=== PATIENT | male | born 2005 ===

== ENCOUNTER 2025-03-17 12:44 | Emergency (ER) | payer OTHER, SELFPAY ==
--- NOTE | ~2025-03-17 | XR_ITS ---
Left foot Technique: AP, oblique, and lateral views were obtained. Clinical History: Injury Findings: No acute fracture or dislocation is seen. Osseous alignment is anatomic. Joint spaces are p reserved without erosive or degenerative change. Soft tissues are unremarkable. Impression: Unremarkable left foot radiographs. Reviewed, dictated and finalized at location . Impression: Unremarkable left foot radiographs.
--- NOTE | ~2025-03-17 | XR_ITS ---
Left ankle Technique: AP, oblique, and lateral views were obtained. Clinical History: Injury Findings: No acute fracture or dislocation is seen. Osseous alignment is anatomic. Ankle mortise and other visualized joint spaces are preserved. Soft tissues are otherwise unremarkable. Impression: Unremarkable left ankle. Reviewed, dictated and finalized at location . Impression: Unremarkable left ankle.
--- OUTSIDE RECORDS SUMMARY | 2025-03-17 12:50 | XMS_ITS | Clinical Summary ---
Author Organization [facility] Address [facility] [place] [address] Care Team Providers Care Hand Braille Transcriber Name Role Phone None, Provider MD Primary Care Provider Unavaila ble Allergies No known active allergies Medications ondansetron (ZOFRAN-ODT) 4 MG disintegrating tablet Take 1 tablet (4 mg total) by mouth every 8 (eight) hours as needed for Nausea. 20 tablet 2 Active Encounters Date Type Department Care Team Description 03/15/2025 Telephone [facility] [address] [facility] [address] [place] [address] Ang Fulton DO Appointment Request 03/13/2025 2:01 PM CDT - 03/13/2025 3:25 PM CDT Emergency [facility] Emergency Room [address] [place] [address] Jose Raul Palomino MD Foot Injury Discharge Disposition: Home or Self Care (Routine Discharge) 03/13/2025 Travel from Last 3 Months Social History Tobacco Use Types Packs/Day Years Used Date Smoking Tobacco: Former Cigarettes 0.3 0.5 Smokeless Tobacco: Never Tobacco Cessation:Counseling Given: Not Answered Alcohol Use Standard Drinks/Week Comments Never 0 (1 standard drink = 0.6 oz pur e alcohol) AUDIT-C Answer Date Recorded Q1: How often do you have a drink containing alc ohol? Never 06/10/2020 Average Number of Drinks Not on file Frequency of Binge Drinking Not on file 10/2019 Sex and Gender Information Value Date Recorded Sex Assigned at Not on file Legal Sex Male 4:07 PM CDT Gender Identity Not on file Sexual Orientation Not on file Last Filed Vital Signs Vital Sign Reading Time Taken Comments Blood Pressure 136/77 03/13/2025 3:19 PM CDT Pulse 60 03/13/2025 3:19 PM CDT Temperature 37.1 C (98.7 F) 03/13/2025 3:19 PM CDT Respiratory Rate 18 03/13/2025 3:19 PM CDT Oxygen Saturation 99% 03/13/2025 3:19 PM CDT Inhaled Oxygen Concentration - - Weight 72.6 kg (160 lb) 03/13/2025 2:05 PM CDT Height 185.4 cm (6' 1) 03/13/2025 2:05 PM CDT Body Mass Index 21.11 03/13/2025 2:05 PM CDT Plan of Treatment Health Maintenance Due Date Last Done Comments Annual Physical 2006 Meningococcal B Vaccine (1 of 2 - Standard) 2019 Hepatitis C 2021 COVID-19 Vaccine ( season) 2024 DTaP, Tdap and Td Vaccines (7 - Td or Tdap) 05/13/2024 05/13/2014, 02/11/2008, 06/20/2004, Additional history exists PHQ-2 (Physician [place]) 09/09/2024 Pneumococcal Vaccine: Pediatrics (0 to 5 Years) and At-Risk Patients (6 to 49 Years) Aged Out 2003, 2003, 2003 No longer eligible based on patient's age to complete this topic Hepatitis B Vaccines Completed 2003, 2003, 2003 HPV Vaccines Completed 06/27/2017, 06/12/2016 Meningococcal Vaccine Aged Out 06/27/2017, 016 No longer eligible based on patient's age to complete this topic RSV Immunizations Under 20 Months Aged Out No longer eligible based on patient's age to complete this topic Procedures Procedure Name Priority Date/Time Associated Diagnosis Comments XR FOOT LT 3V STAT 03/13/2025 2:29 PM CDT from Last 3 Months Results * XR FOOT LT 3V (03/13/2025 2:29 PM CDT) Anatomical Region Laterality Modality Foot Radiographic Henrietta ging 03/13/2025 2:31 PM CDT Impressions 03/13/2025 2:34 PM CDT IMPRESSION: 1. Subtle age-indeterminate lucency along the anterior aspect of the cuboid. Cannot exclude acute fracture. Could further evaluate with CT. Ordered By: JOSE RAUL PALOMINO Interpreted By: Justin Jack MD, 03/13/2025 2:31 PM Narrative 03/13/2025 2:34 PM [address]T [address] [place] [address] EXAMINATION: XR FOOT LT 3V EXAM TIME: 03/13/2025 2:29 PM CLINICAL HISTORY: Injury. Pain. Remote history of fracture. COMPARISON: None TECHNIQUE: Left foot, 3 views FINDINGS: Subtle age-indeterminate lucency along the anterior aspect of the cuboid. No other acute fractures seen elsewhere in the left foot. Probable accessory ossicle projecting inferior to the calcaneocuboid articulation on the lateral view. Procedure Note Justin Jack MD - 03/13/2025 [facility] [address] [facility] [place] [address] EXAMINATION: XR FOOT LT 3V EXAM TIME: 03/13/2025 2:29 PM CLINICAL HISTORY: Injury. Pain. Remote history of fracture. COMPARISON: None TECHNIQUE: Left foot, 3 views FINDINGS: Subtle age-indeterminate lucency along the anterior aspect of the cuboid.No other acute fractures seen elsewhere in the left foot. Probableaccessory ossicle projecting inferior to the calcaneocuboid articulationon the lateral view. IMPRESSION: 1. Subtle age-indeterminate lucency along the anterior aspect of thecuboid. Cannot exclude acute fracture. Could further evaluate with CT. Ordered By: JOSE RAUL PALOMINO Interpreted By: Justin Jack MD, 03/13/2025 2:31 PM us Jose Raul Palomino MD GENERAL IMAGING Final Result from Last 3 Months Insurance MEDICAID MEDICAL REIMBURSEMENTS OF [facility] Care Teams Hand Braille Transcriber Relationship Specialty Start Date End Date None, Provider, PCP - General UNKNOWN PHYSICIAN SPECIALTY 03/13/25
--- OUTSIDE RECORDS SUMMARY | 2025-03-17 12:50 | XMS_ITS | Clinical Summary ---
Author Organization [facility] Address [address] [place] [address] Care Team Providers Care Line Painting Machine Operator Name Role Phone Shayla Trinh MD Primary Care Provider [phone] Source Comments [facility],non-owned Affiliates and Associated Physician Practices is amultiple site organization consisting of ambulatory clinics and hospital sitesin [place], [place], [place] and [place]. This disclosure is being madepursuant to the Care Everywhere program and may not contain all information available regarding this patient. Last updated [email or web address] [facility] Allergies No known active allergies Medications * Be aware that medications may not be up to date on this document. Alwaysverify current medications with the patient. ibuprofen (ADVIL) 200 MG tablet Take 200 mg by mouth every 6 hours as needed for Pain Active Active Problems Problem Noted Date Diagnosed Date Contusion of left knee 09/04/2016 Left ankle injury 09/04/2016 Closed fracture of proximal end of left fibula with routine healing 05/21/2016 Closed left ankle fracture 04/27/2016 Fracture of upper end of fibula 04/26/2016 Tic disorder 10/26/2013 Overview (06/09/2015): History of hand flapping especially when excited or nervous or bored. He also stares off at times when flapping and sticks his tongue out at the same time. Also occasional eye blinking Assessment & Plan (10/26/2013 12:26 PM 6TH GRADE TEACHER): No treatment is indicated at this time. The tics are not disturbing to Barry or family. He is able to suppress them when needed. Does not have any vocal tics. Attention span is overall good. Following teaching provided to parents and school: Tics 1. Tics are not usually predictable. They may increase with talking about them, or in response to other sounds or movements. They may get worse when your child is excited or having other emotions, or when overly tired. They will be less often when your child is absorbed in activities or when asleep. Your child may be able to keep them from coming briefly, or during school, but it is a big effort and the movements are more likely to increase when s/he gets home and can relax. 2. Try to ignore the movements and vocalizations, but discuss the condition openly in the classroom so there children can understand and be more accepting. 3. Tics are not controllable by will power and are caused by biologic factors; stress is not underlying cause. 4. Some symptoms that are occurring are due to another cause and need to be evaluated and treated separately. 5. The treatment goal is to reduce tics to being less frequent or less intrusive, not complete suppression 6. Tics are a chronic condition, although most improve by adolescence or in early adult years. Stress headaches 10/26/2013 Overview (10/26/2013): Headaches are occasional. Not signs/symptoms of migraines Improves with OTCs. No school/activities missed Assessment & Plan (10/26/2013 1:00 PM 6TH GRADE TEACHER): Instructed to continue to use OTC medications for pain. To contact us again if headache frequency increases or worsens. Immunizations Immunization Administration Dates Next Due DTaP VACCINE IM (6wk-6yrs) 02/11/2008,,2003,2003,04/19 HEP B VACCINE, PED/ADOL 2003,2003, HIB BOOSTER 2003,2003,2003 INFLUENZA VACCINE 05/19/2009,07/02/2008,06/30/20 07,07/30/2006 MMR 02/11/2008,03/03/2004 PNEUMOCOCCAL CONJ, PEDS 2003,2003, POLIO IPV 02/11/2008,2003,2003 ,2003 VARICELLA 02/11/2008,03/03/2004 Family History Medical History Relation Name Comments Asthma Brother 1 Ryan Asthma Brother 2 Gonzales Rashes/Skin Problems Brother 2 Gonzales Hypertension Father Diabetes Maternal Grandmother Hypertension Maternal Grandmother Migraine Maternal Grandmother Stroke Maternal Grandmother Migraine Mother Hypertension Paternal Grandmother Stroke Paternal Grandmother Relation Name Status Comments Brother 1 Ryan Alive Brother 2 Gonzales Alive Father Maternal Grandmother Mother Paternal Grandmother Social History Tobacco Use Types Packs/Day Years Used Date Smoking Tobacco: Never Alcohol Use Standard Drinks/Week Comments No 0 (1 standard drink = 0.6 oz pur e alcohol) Sex and Gender Information Value Date Recorded Sex Assigned at Not on file Legal Sex Male 5:31 AM 6TH GRADE TEACHER Gender Identity Not on file Sexual Orientation Not on file Last Filed Vital Signs Vital Sign Reading Time Taken Comments Blood Pressure 120/58 10/26/2013 10:16 AM 6TH GRADE TEACHER Pulse - - Temperature 37.1 C (98.7 F) 07/31/2011 1:41 PM 6TH GRADE TEACHER 0930 Ibuprofen Respiratory Rate - - Oxygen Saturation - - Inhaled Oxygen Concentration - - Weight 75.2 kg (165 lb 12.6 oz) 10/04/2016 1:14 PM 6TH GRADE TEACHER Height 167.1 cm (5' 5.79) 10/04/2016 1 :14 PM 6TH GRADE TEACHER Body Mass Index 26.93 10/04/2016 1:14 PM 6TH GRADE TEACHER Plan of Treatment Health Maintenance Due Date Last Done Comments DTAP/TDAP/TD VACCINES (6 - Tdap) 2014 02/11/2008, 06/20/2004, 2003, Additional history exists HIV SCREENING 2018 HPV VACCINE (1 - Male 3-dose series) 2018 MENINGOCOCCAL (Group B) VACCINE SHARED DECISION-MAKING (1 of 2 - Standard) 2019 HEPATITIS C SCREENING 02/07/2021 COVID-19 VACCINE ( - season) 2024 DEPRESSION SCREENING 09/09/2024 INFLUENZA VACCINE (#1) 2025 07/0207/02/2008, 06/30/2007, Additional history exists ZOSTER VACCINE (1 of 2) 2053 HIB VACCINE Aged Out 2003, 04/2003, 2003 No longer eligible based on patient's age to complete this topic PNEUMOCOCCAL VACCINE Aged Out 2003, 2003, 2003 No longer eligible based on patient's age to complete this topic HEPATITIS B VACCINE Completed 2003, 2003, 2003 MENINGOCOCCAL GROUPS A/C/Y/W VACCINE Aged Out No longer eligible based on patient's age to complete this topic Insurance [place] Care Teams Line Painting Machine Operator Relationship Specialty Start Date End Date Shayla Trinh MD [address] [place] [phone] PCP - General Family Medicine 08/21/13
[2025-03-17 12:56] VITALS: BP 124/68; PULSE 82; RESP 16; TEMP 36.6; O2SAT 100
--- NOTE | 2025-03-17 13:39 | ED_ITS ---
HPI - Extremity Injury (Lower) General Chief Complaint: Extremity Injury, Lower Stated Complaint: left foot injury Time Seen by Provider: 03/17/25 12:51 History of Present Illness HPI Narrative: 20-year-old male presents emergency department for left foot pain for 6 days. Patient states he works at [employer]. States 6 days ago he had a cart at [employer] fall on his left foot. He went to an outside hospital 2 days later and had x-rays performed which showed no broken bones. He is referred to orthopedist. States he attempted to contact the orthopedist but cannot make an appointment because the orthopedist reportedly does not see foot issues. The patient states he has been trying to set up work comp with his employer but is been taking while and was told by his employer to come to the ED if he continues to have issues. The patient states he developed bruising to the dorsum of his foot yesterday. He is reporting pain diffusely throughout the dorsum of his foot. He has been wearing a boot and crutches with minimal improvement. Has been taking ibuprofen [id number] for pain with improvement. Also admits to icing and elevating with improvement. Related Data Allergies Allergy/AdvReac Type Severity Reaction Status Date / Time No Known Allergies Allergy Mild Verified 03/17/25 12:59 Review of Systems Review of Systems: All systems reviewed & are unremarkable except as noted in HPI and below Exam Narrative: GENERAL: Well-appearing, well-nourished, and in no acute distress. HEAD: Normocephalic, atraumatic. EYES:EOMI. ENT: Nares clear, no rhinorrhea or epistaxis. Mucous membranes moist. NECK: Supple. CHEST: Clear to auscultation. No respiratory distress. HEART: Regular rate and rhythm. No murmur heard. Normal peripheral pulses. EXTREMITIES: LLE: Healing ecchymosis throughout the dorsum of the left foot with mild edema. Diffuse tenderness to the dorsum of the left foot and over the 2nd through 4th metatarsals. No obvious deformity. Minimal tenderness over the medial malleolus. Patient is able to flex and extend toes and has full range of motion of ankle, worsening pain with dorsiflexion. DP pulses 2+. Sensation is intact throughout. Cap refill less than 2. No tenderness remainder of extremity. Negative high squeeze and Hernandez's test. Compartments soft SKIN: Warm, dry, no rash. NEURO: No focal deficits. Alert and oriented x3 Course Vital Signs Vital signs: Vital Signs Temperature 97.9 F 03/17/25 12:56 Pulse Rate 82 03/17/25 12:56 Respiratory Rate 16 03/17/25 12:56 Blood Pressure 124/68 03/17/25 12:56 Pulse Oximetry 100 03/17/25 12:56 Oxygen Delivery Room Air 03/17/25 12:56 Temperature 97.9 F 03/17/25 12:56 Pulse Rate 82 03/17/25 12:56 Respiratory Rate 16 03/17/25 12:56 Blood Pressure 124/68 03/17/25 12:56 Pulse Oximetry 100 03/17/25 12:56 Oxygen Delivery Room Air 03/17/25 12:56 MDM - Extremity Injury (Lower) MDM Narrative Medical decision making narrative: 20-year-old male presents emergency department for left foot pain after an injury that occurred 6 days ago. See HPI for further history. Triage vitals are stable. Exam is significant for the above. Patient is neurovascularly intact. Compartments are soft. X-rays of the left foot and ankle show no acute osseous findings. Patient was updated on results. Advised to continue wearing the boot and crutches, RICE, take Tylenol/ibuprofen for pain. Will provide PCP and podiatry follow-up. Discussed strict ED return precautions. He is agreeable with the plan and verbalized understanding. Discharged in stable con dition. Discharge Plan Discharge Clinical Impression: Contusion of foot, left Qualifiers: Encounter type: initial encounter Qualified Code(s): S90.32XA - Contusion of left foot, initial encounter Patient Disposition: Home Condition: Stable Instructions: Antibiotic Form, Foot Contusion (ED) Additional Instructions: Your x-rays do not show any broken bones. Please rest, ice, elevate and keep your foot compressed. Take Tylenol and ibuprofen as directed [id number] as needed for pain. Follow-up with the primary care provider environmental protection forester I have referred you to. Return to the emergency department if you develops sig nificantly worsening pain, a white or numb foot, or other concerning symptoms. Patient Language: Maori Follow-up/Referrals: Sekou Moreira Jr., GEMMAM [Physician] - PHYSICIAN,SDET [Primary Care Provider] - Nathan Elise MD [Physician] -
[2025-03-17] MEDS: IBUPROFEN 400 MG TABLET 800 MG PO (13:50)
--- OUTSIDE RECORDS SUMMARY | 2025-03-17 13:56 | XMS_ITS | Clinical Summary ---
Author Organization [facility] Address [address] [place] [address] Care Team Providers Care Apprentice Photographer Name Role Phone Shayla Trinh MD Primary Care Provider [phone] Source Comments [facility],non-owned Affiliates and Associated Physician Practices is amultiple site organization consisting of ambulatory clinics and hospital sitesin [place], [place], [place] and [place]. This disclosure is being madepursuant to the Care Everywhere program and may not contain all information available regarding this patient. Last updated [employer] [facility] Allergies No known active allergies Medications * [...] blinking Assessment & Plan (10/26/2013 12:26 PM BLOWN FILM EXTRUSION OPERATOR): No treatment is indicated at this time. [...] missed Assessment & Plan (10/26/2013 1:00 PM BLOWN FILM EXTRUSION OPERATOR): Instructed to continue to use OTC medications [...] on file Legal Sex Male 5:31 AM BLOWN FILM EXTRUSION OPERATOR Gender Identity Not on file Sexual Orientation Not on file Last Filed Vital Signs Vital Sign Reading Time Taken Comments Blood Pressure 120/58 10/26/2013 10:16 AM BLOWN FILM EXTRUSION OPERATOR Pulse - - Temperature 37.1 C (98.7 F) 07/31/2011 1:41 PM BLOWN FILM EXTRUSION OPERATOR 0930 Ibuprofen Respiratory Rate - - Oxygen Saturation - - Inhaled Oxygen Concentration - - Weight 75.2 kg (165 lb 12.6 oz) 10/04/2016 1:14 PM BLOWN FILM EXTRUSION OPERATOR Height 167.1 cm (5' 5.79) 10/04/2016 1 :14 PM BLOWN FILM EXTRUSION OPERATOR Body Mass Index 26.93 10/04/2016 1:14 PM BLOWN FILM EXTRUSION OPERATOR Plan of Treatment Health Maintenance Due Date [...] - [place] Care Teams Apprentice Photographer Relationship Specialty Start Date End Date Shayla Trinh MD [address] [place] [phone] PCP - General Family Medicine 08/21/13
--- OUTSIDE RECORDS SUMMARY | 2025-03-17 13:56 | XMS_ITS | Clinical Summary ---
Author Organization [facility] Address [facility] [place] [address] Care Team Providers Care Radio Technician Name Role Phone None, Provider MD Primary Care Provider Unavaila ble Allergies No known active allergies Medications ondansetron (ZOFRAN-ODT) 4 MG disintegrating tablet Take 1 tablet (4 mg total) by mouth every 8 (eight) hours as needed for Nausea. 20 tablet 2 Active Encounters Date Type Department Care Team Description 03/15/2025 Telephone [facility] Orthopedic [facility] [address] [facility] [address] [place] [address] Ang Fulton DO Appointment Request 03/13/2025 2:01 PM CDT - 03/13/2025 3:25 PM CDT Emergency [facility] Emergency Room [address] [place] [address] Jose Raul Palomino MD Foot Injury Discharge [...] 02/11/2008, 06/20/2004, Additional history exists PHQ-2 (Physician [place]) 09/09/2024 Pneumococcal Vaccine: Pediatrics (0 to 5 [...] 2:31 PM Narrative 03/13/2025 2:34 PM CDT [address] [place] [address] EXAMINATION: XR FOOT LT 3V EXAM TIME: [...] Procedure Note Justin Jack MD - 03/13/2025 [facility] [address] [facility] [facility] [place] [address] EXAMINATION: XR FOOT LT 3V EXAM TIME: [...] 3 Months Insurance MEDICAID MEDICAL REIMBURSEMENTS OF [facility] Care Teams Radio Technician Relationship Specialty Start Date End Date None, Provider, PCP - General UNKNOWN PHYSICIAN SPECIALTY 03/13/25
== END 2025-03-17 13:53 | disposition home or self-care (01) ==
LOC: ANHED 13:45
PROVIDERS: Emergency Provider Physician Assistant
DX: S90.32XA Contusion of left foot, initial encounter (principal); W20.8XXA Other cause of strike by thrown, projected or falling object, initial encounter
CPT/HCPCS: 73610; 73630; 99283; A9270